=== PATIENT | male | born 1970 | race Two or more races ===

== ENCOUNTER 2019-03-03 20:51 | Emergency (ER) | payer BC ==
[~2019-03-03] VITALS: Ht 170.2 cm; Wt 90.7 kg
[2019-03-03 21:29] VITALS: BP 128/87
[2019-03-03] MEDS ORDERED: IBUPROFEN 600 MG TAB PO ONE (21:30)
[2019-03-03] MEDS ORDERED: ONDANSETRON ODT 4 MG TAB PO ONE (23:00)
[2019-03-03] MEDS ORDERED: COLCHICINE 0.6 MG CAP PO ONE (23:00)
[2019-03-03] MEDS ORDERED: MORPHINE SULFATE 10 MG/ML INJ 1ML SDV IM ONE (23:00)
== END 2019-03-04 00:48 | disposition home or self-care (01) ==
LOC: ER 20:57
DX: S92.901A Unspecified fracture of right foot, initial encounter for closed fracture (principal); M10.072 Idiopathic gout, left ankle and foot; W11.XXXA Fall on and from ladder, initial encounter; Y93.89 Activity, other specified; Y99.8 Other external cause status; Y92.89 Other specified places as the place of occurrence of the external cause
CPT/HCPCS: 29515; 36415; 73630; 73700; 84550; 96372; 99284; J2270; Q0162